=== PATIENT | male | born 1970 | race Caucasian/White ===

== ENCOUNTER 2016-06-19 13:40 | Emergency (ER) | payer BC, OTHER ==
[2016-06-19 14:21] LABS: HEMOGLOBIN 15.2 gm/dl (14.0-17.5); RED BLOOD COUNT 4.86 M/UL (4.20-5.50); WHITE BLOOD COUNT 8.9 K/UL (4.5-11.0)
[2016-06-19 14:48] LABS: BUN/CREATININE RATIO 6 (0-10)
== END 2016-06-19 18:00 | disposition short-term general hospital (02) ==
LOC: ER1 13:40
PROVIDERS: Emergency Medicine
DX: J93.83 Other pneumothorax (principal); I10 Essential (primary) hypertension; E78.5 Hyperlipidemia, unspecified; F17.210 Nicotine dependence, cigarettes, uncomplicated; Z88.0 Allergy status to penicillin; Z79.891 Long term (current) use of opiate analgesic; Z79.899 Other long term (current) drug therapy
CPT/HCPCS: 32551; 71010; 80053; 82550; 82553; 83874; 84484; 85025; 85379; 93005; 96361; 96374; 96375; 96376; 99285; J2250; J2405

== ENCOUNTER → 2016-06-24 | Outpatient (CLI) | payer BC, OTHER | LOC: KOH-I 11:33 | DX: J93.0 Spontaneous tension pneumothorax (principal) | CPT/HCPCS: 71020 ==

== ENCOUNTER → 2016-06-30 | Outpatient (CLI) | payer BC, OTHER ==
[2016-06-30 15:48] LABS: HEMOGLOBIN 14.3 gm/dl (14.0-17.5); RED BLOOD COUNT 4.66 M/UL (4.20-5.50)
[2016-06-30 16:17] LABS: BUN/CREATININE RATIO 6 (0-10)
== END ==
LOC: LAB 15:07
PROVIDERS: Emergency Medicine
DX: R05 Cough (principal); R50.9 Fever, unspecified; J98.4 Other disorders of lung
CPT/HCPCS: 36415; 71020; 80053; 85027

== ENCOUNTER → 2020-06-08 | Outpatient (CLI) | payer BC, OTHER ==
[~2020-06-08] MED LIST: AMBIEN5 MG PO; AZOR 10-40 MG1 EACH PO; FLAGYL500 MG PO; GABAPENTIN300 MG PO; HUMIBID LA TAB600 MG PO; LEVAQUIN750 MG PO; LOPRESSOR 50 MG50 MG PO; LOPRESSOR100 MG PO; MICARDIS40 MG PO; NORCO 10-325 T1 EACH PO; PERCOCET 10-321 EACH PO; REMERON 15 MG T15 MG PO; STIOLTO RESPIMAT INH; VENTOLIN HFA 66.7 GM INH
== END ==
LOC: HEART 5 16:00
DX: J44.9 Chronic obstructive pulmonary disease, unspecified (principal)
CPT/HCPCS: 94060; 94729

== ENCOUNTER → 2020-06-24 | Outpatient (CLI) | payer BC, OTHER | LOC: CT 15:26 | DX: R91.8 Other nonspecific abnormal finding of lung field (principal); Z86.012 Personal history of benign carcinoid tumor | CPT/HCPCS: 71260; Q9967 ==

== ENCOUNTER 2020-10-20 10:57 | Emergency (ER) | payer BC ==
[~2020-10-20] VITALS: Ht 177.8 cm; Wt 81.6 kg
[2020-10-20] MEDS ORDERED: VENTOLIN HFA 66.7 GM INH (12:08)
[2020-10-20] MEDS ORDERED: DELSYM30 MG/5 ML PO (12:08)
== END 2020-10-20 14:00 | disposition home or self-care (01) ==
LOC: ER1 10:57
DX: Z23 Encounter for immunization (principal); U07.1 COVID-19; I10 Essential (primary) hypertension; F17.210 Nicotine dependence, cigarettes, uncomplicated; Z88.0 Allergy status to penicillin
CPT/HCPCS: 99283; M0243